=== PATIENT | male | born 1980 | race Caucasian/White ===

== ENCOUNTER 2016-08-24 13:55 | Emergency (ER) | payer BC ==
[2016-08-24] MEDS ORDERED: Sodium Chloride 0.9% 1,000 ML PRIMARY IV ONE (14:14)
[2016-08-24] MEDS ORDERED: NORMAL SALINE 10 ML SYRINGE FLUSH IVP PRN (14:14)
--- NOTE | 2016-08-24 14:21 | EKG ---
[address] [place] [address] Measurements Intervals [place] Rate: 78 P: 64 SD: 191 QRS: -16 QRSD: 94 T: 38 QT: 366 QTc: 400 Interpretive Statements SINUS RHYTHM POSSIBLE LEFT ATRIAL ENLARGEMENT [-0.1mV P WAVE IN V1/V2] POSSIBLE RIGHT VENTRICULAR CONDUCTION DELAY [RSR (QR) IN V1/V2] NONSPECIFIC T-WAVE ABNORMALITY No previous ECG available for comparison Electronically Signed On 08-24-16 19:42:15 MDT by Nilesh Abdul [email or web address]
--- NOTE | 2016-08-24 14:21 | PDOC ---
General Adult HPI - General Chief Complaint: General Medical Stated Complaint: FELT JITTERY/? LOW BLOOD SUGAR Date Seen by Provider: 08/24/16 Time Seen by Provider: 14:10 Source: POSITIVE: Patient Exam Limitations: POSITIVE: No limitations Nurse's Notes Reviewed & Considered: Yes - History of Present Illness Initial Comment: The patient is a 35-year-old male who presents to the emergency department with jitteriness and not feeling well. He is from [place] and is on his way with his family to go fishing in [place]. He states that for the past several hours he has not been feeling well. He describes feeling somewhat jittery and a little bit lightheaded as well as sick to his stomach. He thought that maybe his blood sugar was low and he did drink some lemonade. He does not have any known history of diabetes or hypoglycemia. He was still feeling bad and so they decided to come here to the emergency room. He denies any associated headache or chest pain. He denies vision changes, numbness or weakness in his extremities. He continues to state that he feels lightheaded. He denies any recent illness or trauma. He did have back surgery in April. The only prescription medication he currently takes is Percocet as needed. He did take this about a half an hour ago as he thought that not taking his Percocet may be causing the symptoms. He states that he quit smoking in May and denies significant alcohol intake. He states that he cut back his alcohol consumption in May as well. He does admit to drinking 4 drinks last night while packing. He does not have any known history of heart disease however his mom has significant cardiac history. Have you received a tetanus shot in the past 10 years?: Unknown - Patient Home Medications Home Medications: Home Medications Aspirin 325 mg PO PRN 08/24/16 Oxycodone HCl/Acetaminophen [Percocet 10-325 Mg Tablet] 1 each PO TID PRN - Patient Allergies Allergies/Adverse Reactions: Allergies Allergy/AdvReac Type Severity Reaction Status Date / Time venom-honey bee Allergy Severe Anaphylaxis Verified 08/24/16 14:04 egg AdvReac Intermediate DIARRHEA Verified 08/24/16 14:04 DAIRY AdvReac Intermediate DIARRHEA Uncoded 08/24/16 14:04 Past Medical History Past Medical History Reviewed: Other (please comment) (Per HPI) ROS - Limitations ROS Limitations: No Limitations Constitution: DENIES: Chills, Fever Cardiovascular: DENIES: Chest Pain, Heart Racing, Blood Pressure Problem, Edema Respiratory: DENIES: Cough Non Productive, Cough Productive, Hurts To Breathe, Shortness Of Breath Neurological: REPORTS: Dizziness, Other (Feels jittery). DENIES: Headache, Numbness, Weakness Gastrointestinal: REPORTS: Nausea (Currently improved). DENIES: Abdominal Pain , Vomitting Musculoskeletal: REPORTS: Denies MS Symptoms Eyes: REPORTS: Denies Symptoms ENT: REPORTS: Denies Symptoms Skin: DENIES: Rash General Adult Exam - General Appearance General Appearance: POSITIVE: Alert, Cooperative, No Acute Distress - HEENT HEENT: POSITIVE: Head Inspection Nml, Eyes Inspection Nml, Ears Inspection Nml, Nose Inspection Nml - Neck Neck: POSITIVE: Normal Inspection. 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, 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 As Tested, Motor Normal, Sensation Normal General Adult Progress - Results Reviewed by me Lab Results Reviewed: Yes Lab Results:: Laboratory Results 08/24/16 08/24/16 Range/Units 13:53 14:55 WBC 7.43 (4.8-10.8) 10^3/uL RBC 4.92 (4.70-6.10) 10^6/uL Hgb 15.6 (14.0-18.0) g/dL Hct 44.7 (42.0-52.0) % MCV 90.9 H (80-90) FL MCH 31.7 H (27-31) PG MCHC 34.9 (33-37) g/dL RDW Std Deviation 39.2 (39-50) fL RDW Coeff of [place] 12.2 (11.5-14.5) % Plt Count 189 (140-350) 10*3/uL MPV 11.0 (7.4-12.2) FL Immature Gran % (Auto) 0.1 (0-5) % Neut % (Auto) 55.7 (50-80) % Lymph % (Auto) 32.2 (10-50) % [place]ander % (Auto) 10.0 (5-15) % Eos % (Auto) 1.2 (0-8) % Baso % (Auto) 0.8 (0-1) % Immature Gran # (Auto) 0.01 10*3/UL Neut # (Auto) 4.14 10*3/UL Lymph # (Auto) 2.39 10*3/uL [place]ander # (Auto) 0.74 (0.3-0.8) 10*3/UL Eos # (Auto) 0.09 10*3/UL Baso # (Auto) 0.06 10*3/UL WBC Morphology Comment Normal morphology (NORM) Plt Morphology Comment Normal morphology (NORM) RBC Morph Comment Normal morphology (NORM) Sodium 141 (135-145) meq/L Potassium 3.5 L (3.8-5.2) meq/L Chloride 103 (98-112) meq/L Carbon Dioxide 24 (23-33) meq/L Anion Gap 14 (5-20) BUN 12 (7-22) mg/dL Creatinine 0.9 (0.70-1.50) mg/dL Estimated GFR > 60 (>60 ml/min/1.73m(2)) BUN/Creatinine Ratio 13.33 (6-20) Glucose 127 H (78-110) mg/dL Calculated Osmolality 293.0 H (267-292) mOsm/kg Calcium 9.9 (8.7-10.7) mg/dL Magnesium 1.8 (1.6-2.4) mg/dL Total Bilirubin 0.6 (0.3-1.2) mg/dL AST 59 H (21-57) IU/L ALT 50 (21-72) IU/L Alkaline Phosphatase 60 (38-126) IU/L Troponin I < 0.012 (< 0.040) ng/mL Total Protein 8.3 H (6.1-8.0) g/dL Albumin 4.8 (3.5-4.8) g/dL Globulin 3.5 (2.50-4.10) g/dL Albumin/Globulin Ratio 1.30 (1.3-2.0) mg/g TSH 1.29 (0.2700-4.2000) uIU/mL Ur Collection Type Clean catch urine Urine Color Yellow Urine Clarity Clear (CLEAR) Urine pH 5.5 (5.0-8.5) Ur Specific [place] <=1.005 (1.005-1.030) U Specif Grav (Refrac) 1.003 Urine Protein Negative (NEG) mg/dl Urine Glucose (UA) Negative (NEG) mg/dL Urine Ketones Negative (NEG) Urine Occult Blood Negative (NEG) Urine Nitrate Negative (NEG) Urine Bilirubin Negative (NEG) Urine Urobilinogen 0.2 (0.2) EU/dL Ur Leukocyte Esterase Negative (NEG) Ur Culture Indicated? Culture not set Urine Opiates Screen Negative (NEG) Ur Buprenorphine Negative (NEG) Ur Oxycodone Screen Positive H (NEG) Urine Methadone Screen Negative (NEG) Ur Propoxyphene Screen Negative (NEG) Barbiturate Screen Negative (NEG) U Tricyclic Antidepress Negative (NEG) Phencyclidine Screen Negative (NEG) Amphetamines Screen Negative (NEG) U Methamphetamines Scrn Negative (NEG) Benzodiazepines Screen Negative (NEG) Cocaine Screen Negative (NEG) U Marijuana (THC) Screen Negative (NEG) Serum Alcohol < 10 (0-10) mg/dL EKG Interpreted/Reviewed By Me:: Yes EKG Interpretation:: POSITIVE: Normal Sinus Rhythm, Normal Rate, Normal Intervals, Normal [place], Normal QRS, Other (No ST segment changes, T-wave inversions noted in V5 and V6, no previous EKGs available for comparison) - Patient's Progress MDM / ED Course: An IV was established and he did receive a 1 L bolus of normal saline. The patient's blood pressure was elevated on arrival. After receiving fluid the patient felt better. His EKG shows a normal sinus rhythm with no acute ST segment changes. His blood work is all essentially unremarkable with normal blood counts, chemistries, thyroid and troponin. Urinalysis and tox screen are negative. The patient does admit that he ate some food that possibly had some cheese in it. He has had GI reactions to this in the past. At this point his lightheadedness and other symptoms are most likely a near syncopal episode caused by a vagal reaction. The patient is advised to rest and push fluids. He is advised to return to the emergency room if he develops any worsening or change in symptoms. He will follow-up with his primary care provider upon return home. Patient Care Time - Estimated PCT Patient Care Time (In Minutes): 35 Vital Signs - Recent Vital Signs Vital Signs: Vital Signs (Last 8 hours) Temp Pulse Pulse Pulse Pulse Resp BP 08/24/16 15:25 75 73 76 134/91 08/24/16 15:13 69 08/24/16 14:01 96.7 F L 90 18 BP BP BP Pulse Ox 08/24/16 15:25 150/100 134/96 08/24/16 15:13 126/85 97 08/24/16 14:01 167/113 97 - VS Reviewed Vital Signs Reviewed: Yes Discharge Clinical Impression: Near syncope Discharge Disposition: Discharged to Home Condition: Stable Patient Instructions Given at Discharge: Near Syncope (ED) Additional Instructions: The testing done here in the emergency department is all reassuring. Your EKG does not show any evidence of heart attack and your blood tests did not show any evidence of heart damage. Blood counts, and electrolytes were all normal. Your blood sugar is mildly elevated at 1:30 however this should not cause any of these symptoms. At this point it is thought that your symptoms may have been triggered by a vagal reaction. This was caused from overstimulation of the nerve that controls her internal organs and can cause lightheadedness, shakiness, nausea and can sometimes even cause you to pass out. This may have been triggered by a food that may have upset your stomach. Recommend that she rest and push fluids. Return to the emergency room if he develops any further passing out, worsening lightheadedness, fever, chest or abdominal pain, any worsening or change in symptoms. Recommend follow-up with primary care upon return home. Follow Up With: NONE,NONE [Primary Care Provider] -
[2016-08-24 14:22] VITALS: RESP 18; TEMP 96.7
[2016-08-24 14:26] LABS: BASOPHILS # (AUTO) 0.06 10*3/UL; BASOPHILS % (AUTO) 0.8 % (0-1); EOSINOPHILS # (AUTO) 0.09 10*3/UL; EOSINOPHILS % (AUTO) 1.2 % (0-8); HEMATOCRIT 44.7 % (42.0-52.0); HEMOGLOBIN 15.6 g/dL (14.0-18.0); LYMPHOCYTES # (AUTO) 2.39 10*3/uL; MEAN CORPUSCULAR HEMOGLOBIN 31.7 PG (27-31); MEAN CORPUSCULAR HGB CONC 34.9 g/dL (33-37); MEAN CORPUSCULAR VOLUME 90.9 FL (80-90); MONOCYTES # (AUTO) 0.74 10*3/UL (0.3-0.8); NEUTROPHILS # (AUTO) 4.14 10*3/UL; NEUTROPHILS % (AUTO) 55.7 % (50-80); RED BLOOD COUNT 4.92 10^6/uL (4.70-6.10)
[2016-08-24 14:28] LABS: PLATELET MORPHOLOGY COMMENT NORMAL MORPHOLOGY (NORM); RBC MORPHOLOGY COMMENT NORMAL MORPHOLOGY (NORM); WBC MORPHOLOGY COMMENT NORMAL MORPHOLOGY (NORM)
[2016-08-24 14:30] LABS: BLOOD UREA NITROGEN 12 mg/dL (7-22); BUN/CREATININE RATIO 13.33 (6-20); CALCIUM 9.9 mg/dL (8.7-10.7); EST GLOMERULAR FILTRATION > 60 (>60 ml/min/1.73m(2)); MAGNESIUM 1.8 mg/dL (1.6-2.4); SERUM ALBUMIN 4.8 g/dL (3.5-4.8)
[2016-08-24 15:03] LABS: BILIRUBIN,URINE NEGATIVE (NEG); COLOR,URINE YELLOW; GLUCOSE, URINE (UA) NEGATIVE (NEG); NITRATE,URINE NEGATIVE (NEG); OCCULT BLOOD,URINE NEGATIVE (NEG); PH,URINE 5.5 (5.0-8.5); PROTEIN,URINE NEGATIVE (NEG); UROBILINOGEN,URINE 0.2 EU/dL (0.2)
[2016-08-24 15:16] LABS: AMPHETAMINE SCREEN NEGATIVE (NEG); CLARITY,URINE CLEAR (CLEAR); COCAINE SCREEN NEGATIVE (NEG); METHADONE URINE SCREEN NEGATIVE (NEG); METHAMPHETAMINES SCREEN,URINE NEGATIVE (NEG); OPIATE SCREEN,URINE NEGATIVE (NEG); URINE SAMPLE TYPE CLEAN CATCH URINE; URINE SPECIFIC GRAVITY - MAN 1.003
[2016-08-24 15:17] LABS: CANNABINOID SCREEN,URINE NEGATIVE (NEG)
== END 2016-08-24 15:58 | disposition home or self-care (01) ==
LOC: ER 14:00
DX: R55 Syncope and collapse (principal); R42 Dizziness and giddiness
CPT/HCPCS: 80053; 80305; 80320; 81003; 82948; 83735; 84443; 84484; 85025; 93005; 93010; 96360; 96361; 99284; J7030